=== PATIENT | female | born 1995 | race Caucasian/White ===

== ENCOUNTER 2020-11-26 21:52 | Emergency (ER) | payer MEDICARE ==
[2020-11-26] MEDS ORDERED: ANTIVERT 25 MG PO ONE (22:25)
[2020-11-26] MEDS ORDERED: ANTIVERT 25 MG ONE (22:27)
[2020-11-26 22:34] LABS: Absolute Neutrophil Ct (ANC) 4.92 (1.4-6.9); BASOPHIL % 0.3 % (0.0-0.4); Basophil (Absolute #) 0.03 (0-0.4); Eosinophil % 1.3 % (0.00-5.0); Eosinophil (Absolute #) 0.15 (0-0.5); Hematocrit 42.6 % (35-47); Hemoglobin 13.9 gm/dl (12.0-16.0); Lymphocyte (Absolute #) 5.73 (1.0-4.6); Lymphocytes % 48.7 % (24.0-44.0); Mean Cell Volume 93.6 fl (78-100); Mean Corpuscular Hemoglobin 30.5 pg (26-32); Mean Corpuscular Hgb Concent. 32.6 g/dl (32-36); Mean Platelet Volume 11.4 fl (7.5-11.0); Monocyte (Absolute #) 0.93 (0.0-1.3); Monocytes % 7.9 % (0.0-12.0); Neutrophil % 41.8 % (36.0-66.0); Platelet Count 269 K/mm3 (150-450); Red Blood Count 4.55 M/mm3 (4.1-5.4); Red Cell Distribution Width 13.1 % (11.5-14.0); White Blood Count 11.8 K/mm3 (4.0-10.5)
[2020-11-26 22:42] LABS: Appearance CLEAR (CLEAR); Bilirubin NEGATIVE (NEGATIVE); Blood NEGATIVE Ery/ul (0-5); Glucose NEGATIVE (NEGATIVE); Ketones NEGATIVE (NEGATIVE); Leukocyte Esterase NEGATIVE (NEGATIVE); Mucus SLIGHT /HPF (NEGATIVE); Nitrite NEGATIVE (NEGATIVE); Protein,Urine Dip NEGATIVE (Negative); RBC 0-2 /HPF (0-2); Specific Gravity 1.023 (1.005-1.025); Urobilinogen NEGATIVE mg/dL (0-1)
[2020-11-26 22:45] LABS: ALBUMIN 5.1 g/dL (3.5-5.0); ALKALINE PHOSPHATASE 55 U/L (38-126); ANION GAP 16.9 MEQ/L (5-15); BLOOD UREA NITROGEN 15 mg/dL (7-17); CHLORIDE 103 mmol/L (98-107); Calcium 9.8 mg/dL (8.4-10.2); Carbon Dioxide 25 mmol/L (22-30); EST GLOMERULAR FILTRATION RATE > 60.0 ML/MIN; Glucose 92 mg/dL (74-106); MAGNESIUM 1.9 mg/dL (1.6-2.3); Potassium 3.5 mmol/L (3.5-5.1); SGOT/AST 24 U/L (14-36); SGPT/ALT 13 U/L (0-35); SODIUM 141 mmol/L (137-145); Total Protein 8.6 g/dL (6.3-8.2)
--- NOTE | 2020-11-26 22:51 | ERPHSYRPT ---
- History of Present Illness Time Seen by Provider: 11/26/20 22:00 Source: patient Exam Limitations: no limitations Patient Subjective Stated Complaint: pt c/o dizziness, worse when going from sitting to standing position Triage Nursing Assessment: pt c/o dizziness which started last night and had a few episodes of it today but it got alot worse this evening, especially when laying in bed. Pt states, "my head just feels fuzzy/spinning". Physician History: This is a 25-year-old white female who denies any head injury any presents with dizziness that began as short-lived lightheadedness yesterday. The lightheadedn ess resolved then today she had a few episodes of dizziness. It is worse when she goes from sitting to standing. Although this evening, she laid down and the dizziness was worse. She is never had anything like this before. He is not on any new medications. She has had no new exposures to any chemicals that she is aware of. She denies chest pain and she denies shortness of breath. She denies abdominal pain. She has no earaches. There are no new stressors in her life. She has no ringing in her ears Timing/Duration: yesterday Severity: moderate Character of Deficits: none Deficits: no difficulties Baseline/Normal Cognition: alert oriented x 3 Current Cognition: alert oriented x 3 Baseline Gait: walks w/o assistance Associated Symptoms: denies symptoms Allergies/Adverse Reactions: No Known Drug Allergies Allergy (Unverified 11/26/20 22:00) Hx Tetanus, Diphtheria Vaccination/Date Given: Yes Hx Influenza Vaccination/Date Given: Yes Hx Pneumococcal Vaccination/Date Given: No Immunizations Up to Date: Yes Travel Risk - International Travel Have you traveled outside of the country in past 3 weeks: No - Coronavirus Screening Are you exhibiting any of the following symptoms?: No Close contact with a COVID-19 positive Pt in past 14-21 Days: No - Vaccine Status Have you recieved a Covid-19 vaccination: No - Review of Systems Constitutional: No Symptoms Eyes: No Symptoms Ears, Nose, & Throat: No Symptoms Respiratory: No Symptoms Cardiac: No Symptoms Abdominal/Gastrointestinal: No Symptoms Genitourinary Symptoms: No Symptoms Musculoskeletal: No Symptoms Skin: No Symptoms Neurological: Dizziness, No Headache Psychological: No Symptoms Endocrine: No Symptoms Hematologic/Lymphatic: No Symptoms Immunological/Allergic: No Symptoms All Other Systems: Reviewed and Negative - Past Medical History Pertinent Past Medical History: No Neurological History: No Pertinent History ENT History: No Pertinent History Cardiac History: No Pertinent History Respiratory History: No Pertinent History Endocrine Medical History: No Pertinent History Musculoskeletal History: No Pertinent History GI Medical History: No Pertinent History History: No Pertinent History Psycho-Social History: No Pertinent History Female Reproductive Disorders: No Pertinent History - Past Surgical History Past Surgical History: No Neuro Surgical History: No Pertinent History Cardiac: No Pertinent History Respiratory: No Pertinent History Gastrointestinal: No Pertinent History Genitourinary: No Pertinent History Musculoskeletal: No Pertinent History Female Surgical History: No Pertinent History - Social History Smoking Status: Never smoker Exposure to second hand smoke: No Drug Use: none Patient Lives Alone: No - Female History Hx Last Menstrual Period: 2 weeks ago Hx Now: (unknown) - Nursing Vital Signs Nursing Vital Signs: Initial Vital Signs Temperature 98.3 F 11/26/20 21:53 Pulse Rate 90 11/26/20 21:53 Respiratory Rate 18 11/26/20 21:53 Blood Pressure 159/102 11/26/20 21:53 O2 Sat by Pulse Oximetry 100 11/26/20 21:53 Pain Scale Pain Intensity 0 - Sumner Coma Scale Best Eye Response (Sumner): (4) open spontaneously Best Verbal Response (Sumner): (5) oriented Best Motor Response (Sumner): (6) obeys commands Malcolm Total: 15 - Physical Exam General Appearance: no apparent distress, alert, anxiety Eye Exam: bilateral eye: normal inspection, PERRL, EOMI Ears, Nose, Throat Exam: normal ENT inspection, TMs normal, pharynx normal, moist mucous membranes Neck Exam: normal inspection, non-tender, supple, full range of motion Respiratory: normal breath sounds, lungs clear, airway intact, No chest tenderness, No respiratory distress Cardiovascular: regular rate/rhythm, normal heart sounds, normal peripheral pulses Gastrointestinal: soft, normal bowel sounds, No tenderness Pelvic Exam: not done Rectal Exam: not done Back Exam: normal inspection, normal range of motion, No CVA tenderness, No vertebral tenderness Extremity Exam: normal inspection, normal range of motion, pelvis stable Mental Status: alert, oriented x 3, cooperative addiction specialist Exam: normal hearing, normal speech, PERRL, tongue midline Coordination/Gait: normal finger to nose, normal gait, normal cerebellar function Motor/Sensory: no motor deficit, no sensory deficit, no pronator drift Skin Exam: normal color, warm, dry SpO2 Interpretation: normal SpO2: 100 O2 Delivery: Room Air - Course Nursing assessment & vital signs reviewed: Yes EKG Interpreted by Me: RATE (85), Sinus Rhythm, NORMAL AXIS, NORMAL INTERVALS, NORMAL QRS, NORMAL ST-T, Other (No acute ischemic changes. No comparison EKG available.) Ordered Tests: Active Orders 24 hr Category Date Time Status EKG-ER Only STAT Care 11/26/20 22:26 Active IV Insertion STAT Care 11/26/20 22:25 Active Orthostatic Vital Signs STAT Care 11/26/20 22:13 Active HEAD WITHOUT CONTRAST [CT] Stat Exams 11/26/20 22:25 Taken CBC W DIFF Stat Lab 11/26/20 22:28 Completed CMP Stat Lab 11/26/20 22:28 Completed HCG,QUALITATIVE URINE Stat Lab 11/26/20 22:26 Completed MAGNESIUM Stat Lab 11/26/20 22:28 Completed TROPONIN Q3H Lab 11/26/20 22:28 Completed TROPONIN Q3H Lab 11/27/20 01:30 Ordered TROPONIN Q3H Lab 11/27/20 04:30 Ordered TROPONIN Q3H Lab 11/27/20 07:30 Ordered TROPONIN Q3H Lab 11/27/20 10:30 Ordered UA W/RFX UR CULTURE Stat Lab 11/26/20 22:26 Completed Urine Triage Profile Stat Lab 11/26/20 22:26 Completed Medication Summary Discontinued Medications Generic Name Dose Route Start Last Admin Trade Name Freq PRN Reason Stop Dose Admin Meclizine HCl 25 mg 11/26/20 22:25 11/26/20 22:28 Antivert 25 Mg PO 11/26/20 22:26 25 mg STAT ONE Administration Meclizine HCl Confirm 11/26/20 22:27 Antivert 25 Mg Administered 11/26/20 22:28 Dose 25 mg .ROUTE .STK-MED ONE Lab/Rad Data: Laboratory Result Diagrams 11/26/20 22:28 11/26/20 22:28 Laboratory Results 11/26/20 11/26/20 11/26/20 Range/Units 22:28 22:28 22:28 WBC 11.8 H (4.0-10.5) K/mm3 RBC 4.55 (4.1-5.4) M/mm3 Hgb 13.9 (12.0-16.0) gm/dl Hct 42.6 (35-47) % MCV 93.6 (78-100) fl MCH 30.5 (26-32) pg MCHC 32.6 (32-36) g/dl RDW 13.1 (11.5-14.0) % Plt Count 269 (150-450) K/mm3 MPV 11.4 H (7.5-11.0) fl Gran % 41.8 (36.0-66.0) % Eos # (Auto) 0.15 (0-0.5) Absolute Lymphs (auto) 5.73 H (1.0-4.6) Absolute Monos (auto) 0.93 (0.0-1.3) Lymphocytes % 48.7 H (24.0-44.0) % Monocytes % 7.9 (0.0-12.0) % Eosinophils % 1.3 (0.00-5.0) % Basophils % 0.3 (0.0-0.4) % Absolute Granulocytes 4.92 (1.4-6.9) Basophils # 0.03 (0-0.4) Sodium 141 (137-145) mmol/L Potassium 3.5 (3.5-5.1) mmol/L Chloride 103 (98-107) mmol/L Carbon Dioxide 25 (22-30) mmol/L Anion Gap 16.9 H (5-15) MEQ/L BUN 15 (7-17) mg/dL Creatinine 0.80 (0.52-1.04) mg/dL Estimated GFR > 60.0 ML/MIN Glucose 92 (74-106) mg/dL Calcium 9.8 (8.4-10.2) mg/dL Magnesium 1.9 (1.6-2.3) mg/dL Total Bilirubin 0.30 (0.2-1.3) mg/dL AST 24 (14-36) U/L ALT 13 (0-35) U/L Alkaline Phosphatase 55 (38-126) U/L Troponin I < 0.012 (0.000-0.034) ng/mL Serum Total Protein 8.6 H (6.3-8.2) g/dL Albumin 5.1 H (3.5-5.0) g/dL Urine Color (YELLOW) Urine Appearance (CLEAR) Urine pH (5-6) Ur Specific [place] (1.005-1.025) Urine Protein (Negative) Urine Ketones (NEGATIVE) Urine Blood (0-5) Leonardo/ul Urine Nitrite (NEGATIVE) Urine Bilirubin (NEGATIVE) Urine Urobilinogen (0-1) mg/dL Ur Leukocyte Esterase (NEGATIVE) Urine WBC (Auto) (0-5) /HPF Urine RBC (Auto) (0-2) /HPF U Epithel Cells (Auto) (FEW) /HPF Urine Mucus (Auto) (NEGATIVE) /HPF Urine Culture Reflexed (NO) Urine Glucose (NEGATIVE) mg/dL Urine HCG, Qual (Negative) Urine Opiates Level (NEGATIVE) Ur Methadone (NEGATIVE) Urine Barbiturates (NEGATIVE) Ur Phencyclidine (PCP) (NEGATIVE) Urine Amphetamine (NEGATIVE) U Benzodiazepine Level (NEGATIVE) Urine Cocaine (NEGATIVE) Urine Marijuana (THC) (NEGATIVE) 11/26/20 11/26/20 11/26/20 Range/Units 22:26 22:26 22:26 WBC (4.0-10.5) K/mm3 RBC (4.1-5.4) M/mm3 Hgb (12.0-16.0) gm/dl Hct (35-47) % MCV (78-100) fl MCH (26-32) pg MCHC (32-36) g/dl RDW (11.5-14.0) % Plt Count (150-450) K/mm3 MPV (7.5-11.0) fl Gran % (36.0-66.0) % Eos # (Auto) (0-0.5) Absolute Lymphs (auto) (1.0-4.6) Absolute Monos (auto) (0.0-1.3) Lymphocytes % (24.0-44.0) % Monocytes % (0.0-12.0) % Eosinophils % (0.00-5.0) % Basophils % (0.0-0.4) % Absolute Granulocytes (1.4-6.9) Basophils # (0-0.4) Sodium (137-145) mmol/L Potassium (3.5-5.1) mmol/L Chloride (98-107) mmol/L Carbon Dioxide (22-30) mmol/L Anion Gap (5-15) MEQ/L BUN (7-17) mg/dL Creatinine (0.52-1.04) mg/dL Estimated GFR ML/MIN Glucose (74-106) mg/dL Calcium (8.4-10.2) mg/dL Magnesium (1.6-2.3) mg/dL Total Bilirubin (0.2-1.3) mg/dL AST (14-36) U/L ALT (0-35) U/L Alkaline Phosphatase (38-126) U/L Troponin I (0.000-0.034) ng/mL Serum Total Protein (6.3-8.2) g/dL Albumin (3.5-5.0) g/dL Urine Color YELLOW (YELLOW) Urine Appearance CLEAR (CLEAR) Urine pH 6.0 (5-6) Ur Specific [place] 1.023 (1.005-1.025) Urine Protein NEGATIVE (Negative) Urine Ketones NEGATIVE (NEGATIVE) Urine Blood NEGATIVE (0-5) Leonardo/ul Urine Nitrite NEGATIVE (NEGATIVE) Urine Bilirubin NEGATIVE (NEGATIVE) Urine Urobilinogen NEGATIVE (0-1) mg/dL Ur Leukocyte Esterase NEGATIVE (NEGATIVE) Urine WBC (Auto) NONE (0-5) /HPF Urine RBC (Auto) 0-2 (0-2) /HPF U Epithel Cells (Auto) NONE (FEW) /HPF Urine Mucus (Auto) SLIGHT (NEGATIVE) /HPF Urine Culture Reflexed NO (NO) Urine Glucose NEGATIVE (NEGATIVE) mg/dL Urine HCG, Qual NEGATIVE (Negative) Urine Opiates Level NEGATIVE (NEGATIVE) Ur Methadone NEGATIVE (NEGATIVE) Urine Barbiturates NEGATIVE (NEGATIVE) Ur Phencyclidine (PCP) NEGATIVE (NEGATIVE) Urine Amphetamine NEGATIVE (NEGATIVE) U Benzodiazepine Level NEGATIVE (NEGATIVE) Urine Cocaine NEGATIVE (NEGATIVE) Urine Marijuana (THC) NEGATIVE (NEGATIVE) - Progress Progress: improved, re-examined Progress Note: 11/26/20 23:35 CAT scan of the head without contrast shows no acute intracranial abnormality. Counseled pt/family regarding: lab results, diagnosis, need for follow-up, rad results - Departure Departure Disposition: Home Clinical Impression: Dizziness Condition: Stable Critical Care Time: No Referrals: DOCTOR,NO FAMILY [Primary Care Provider] - Additional Instructions: Drink plenty of fluids. Take your medication as prescribed. Follow-up with your primary care physician tomorrow for further management. Prescriptions: Meclizine HCl 25 mg [Antivert 25 mg] 25 mg PO Q8H PRN #10 tablet PRN Reason: Dizziness
[2020-11-26 23:17] LABS: Amphetamine,Urine NEGATIVE (NEGATIVE); Barbiturate,Urine NEGATIVE (NEGATIVE); Benzodiazepine,Urine NEGATIVE (NEGATIVE); Cocaine,Urine NEGATIVE (NEGATIVE); Methadone,Urine NEGATIVE (NEGATIVE); Opiate,Urine NEGATIVE (NEGATIVE); PCP,Urine NEGATIVE (NEGATIVE); THC,Urine NEGATIVE (NEGATIVE)
[2020-11-26 23:40] VITALS: BP 123/75; PULSE 85; O2SAT 99
[2020-11-27 01:55] LABS: Slide Review 1 YES
--- NOTE | 2020-11-27 09:04 | XRAY ---
Indication: Dizziness and headache. Multiple contiguous axial images obtained through the head without contrast. Comparison: None Normal appearing brain parenchyma, ventricles, and bony calvarium. Visualized paranasal sinuses and mastoid air cells are clear. Impression: Normal CT head without contrast exam. Comment: Preliminary interpretation was made by [facility]. No critical discrepancy.
== END 2020-11-26 23:49 | disposition home or self-care (01) ==
LOC: ED 21:52
DX: R42 Dizziness and giddiness (principal)
CPT/HCPCS: 36000; 36415; 70450; 80053; 80307; 81001; 83735; 84484; 84703; 85025; 93005; 99284; A9270-GY

== ENCOUNTER 2022-04-23 21:18 | Observation (INO) | payer OTHER ==
[2022-04-23 22:39] LABS: Hematocrit 29.3 % (35-47); Hemoglobin 9.5 g/dL (12.0-16.0); Mean Cell Volume 95.8 fL (78-100); Mean Corpuscular Hgb Concent. 32.4 g/dL (32-36); Mean Platelet Volume 10.3 fL (7.5-11.0); Platelet Count 247 x10^3/uL (150-450); Red Blood Count 3.06 x10^6/uL (4.1-5.4); Red Cell Distribution Width 13.1 % (11.5-14.0); White Blood Count 18.2 x10^3/uL (4.0-10.5)
[2022-04-23 22:45] LABS: Appearance SLIGHTLY CLOUDY (CLEAR); Bilirubin NEGATIVE (NEGATIVE); Dipstick done @ ? MAIN LAB; Glucose NEGATIVE (NEGATIVE); Ketones NEGATIVE (NEGATIVE); Nitrite NEGATIVE (NEGATIVE); Protein,Urine Dip NEGATIVE (Negative); RBC NEGATIVE Ery/ul (0-5); Specific Gravity 1.015 (1.005-1.025); Urobilinogen 0.2 mg/dL (0-1)
[2022-04-23 22:48] LABS: Epithelial Cells RARE /HPF (FEW); Mucus SLIGHT /HPF (NEGATIVE)
[2022-04-23 23:02] LABS: Urine Cultured Indicated? NO
[2022-04-23 23:16] LABS: BAND 2 % (0.0-2.0); Eosinophil 3 % (0.00-3.0); Lymphocytes 15 % (24-44); Monocyte 4 % (0.0-12.0); Total Cells Counted 100
[2022-04-23 23:17] LABS: Platelet Estimate NORMAL (NORMAL)
[2022-04-23 23:41] LABS: ABO TYPING O; Antibody Screen NEGATIVE (NEGATIVE); RH TYPING POSITIVE
--- NOTE | 2022-04-24 07:57 | PCM.HP ---
History of Present Illness - Chief Complaint History of Present Illness: is a 26 year old female. 26 yo iup 29 1/7 wks with hx of depression and anxiety currently arrived to labor delivery for evaluation of secondary to falling on her back after tripping over shoes that occurred last night around 7 pm. denies vaginal bleeding or cramping. currently sees provider in [place] and has an appt next thursday. Medications & Allergies Home Medications: Home Medication List Meclizine HCl 25 mg [Antivert 25 mg] 25 mg PO Q8H PRN #10 tablet 11/26/20 [Rx Confirmed 04/23/22] Allergies/Adverse Reactions: Allergies Allergy/AdvReac Type Severity Reaction Status Date / Time No Known Drug Allergies Allergy Unverified 11/26/20 22:00 - Past Medical History Past Medical History: No Neurological History: No Pertinent History ENT History: No Pertinent History Cardiac History: No Pertinent History Respiratory History: No Pertinent History Endocrine Medical History: No Pertinent History Musculoskelatal History: No Pertinent History GI Medical History: No Pertinent History History: No Pertinent History Pyscho-Social History: No Pertinent History Reproductive Disorders: No Pertinent History - Female History Are you now?: Yes Expected Date of Delivery: 07/12/21 - Past Surgical History Past Surgical History: No Neuro Surgical History: No Pertinent History Cardiac History: No Pertinent History Respiratory Surgery: No Pertinent History GI Surgical History: No Pertinent History Genitourinary Surgical Hx: No Pertinent History Musculskeletal Surgical Hx: No Pertinent History Female Surgical History: No Pertinent History - Social History Smoking Status: Never smoker Exposure to second hand smoke: No Alcohol: None Drug Use: none - Physical Exam Vital Signs: Vital Signs - 24 hr Temp Pulse Resp BP BP Pulse Ox 04/24/22 03:00 98 F 87 18 128/67 128/67 100 04/24/22 01:00 77 20 97 04/24/22 00:00 84 20 97 04/23/22 23:16 88 20 108/59 96 04/23/22 23:00 88 20 108/59 96 04/23/22 22:14 98.6 F 94 H 16 125/64 98 04/23/22 22:00 97.8 F 84 18 123/65 100 04/23/22 21:20 98.6 F 94 H 16 125/64 98 04/23/22 21:18 98.6 F 94 H 16 125/64 125/64 98 General Appearance: no apparent distress Respiratory Exam: normal breath sounds Gastrointestinal/Abdomen Exam: soft Pelvic Exam: deferred Extremity Exam: normal inspection Results - Labs Lab/Micro Results: Lab Results-Last 24 Hours 04/23/22 04/23/22 04/23/22 Range/Units 22:36 22:36 22:36 WBC 18.2 H (4.0-10.5) x10^3/uL RBC 3.06 L (4.1-5.4) x10^6/uL Hgb 9.5 L (12.0-16.0) g/dL Hct 29.3 L (35-47) % MCV 95.8 (78-100) fL MCH 31.0 (26-32) pg MCHC 32.4 (32-36) g/dL RDW 13.1 (11.5-14.0) % Plt Count 247 (150-450) x10^3/uL MPV 10.3 (7.5-11.0) fL Segmented Neutrophils 76 H (36.0-66.0) % Band Neutrophils 2 (0.0-2.0) % Lymphocytes (Manual) 15 L (24-44) % Monocytes (Manual) 4 (0.0-12.0) % Eosinophils (Manual) 3 (0.00-3.0) % Platelet Estimate NORMAL (NORMAL) RBC Morphology NORMAL Urinalys Dipstick Clnc MAIN LAB Urine Color YELLOW (YELLOW) Urine Appearance SLIGHTLY CLOUDY A (CLEAR) Urine pH 6.0 (5-6) Ur Specific [place] 1.015 (1.005-1.025) POC Urine Protein Conf NEGATIVE (Negative) Urine Ketones NEGATIVE (NEGATIVE) Urine Nitrite NEGATIVE (NEGATIVE) Urine Bilirubin NEGATIVE (NEGATIVE) Urine Urobilinogen 0.2 (0-1) mg/dL Urine Leukocytes NEGATIVE (NEGATIVE) Urine WBC (Auto) NONE (0-5) /HPF Urine RBC (Auto) NONE (0-2) /HPF U Epithel Cells (Auto) RARE (FEW) /HPF Urine Bacteria (Auto) NONE (NEGATIVE) /HPF Urine RBC NEGATIVE (0-5) Leonardo/ul Urine Mucus (Auto) SLIGHT A (NEGATIVE) /HPF Ur Culture Indicated? NO Urine Glucose NEGATIVE (NEGATIVE) mg/dL ABO Group O Rh Factor POSITIVE Antibody Screen NEGATIVE (NEGATIVE) - Radiology Impressions Radiology Exams & Impressions: Radiology Procedures Category Date Time Status OB FOLLOW UP PER [facility]ETUS [US] Routine Exams 04/24/22 00:00 Ordered - Other Procedures and Tests blood type o positive hgb; 9.5 ob sonogram done and was normal with stormy at 13 monitoring; reactive category 1 tracing Assessment/Plan (1) Status post fall Current Visit: Yes Status: Acute Code(s): Z91.81 - HISTORY OF FALLING (2) Current Visit: Yes Status: Acute Code(s): Z34.90 - ENCNTR FOR SUPRVSN OF NORMAL , UNSP, UNSP TRIMESTER
--- NOTE | 2022-04-24 08:02 | PCM.DS ---
Discharge Summary Date of Admission: 04/23/22 21:18 Admitting Physician: KRISTI FERNANDEZ DO Primary Care Provider: GAYLA JONES Allergies Allergies No Known Drug Allergies Allergy (Unverified 11/26/20 22:00) Hospital Summary - Hospital Course Hospital Course: pt admitted last night who was at 29 wks and fell on her back after tripping over her shoes. denies vaginal bleeding or cramping. sonogram done and was normal with stormy at 13, tracing reactive category 1 and hgb at 9.5. all questions answered to her satisfaction and was advised to fu with her provider as scheduled next week and to contact his office for any noted decreased movement. - Vitals & Intake/Output Vital Signs: Vital Signs Temperature 98 F 04/24/22 03:00 Pulse Rate 87 04/24/22 03:00 Respiratory Rate 18 04/24/22 03:00 Blood Pressure 128/67 04/24/22 03:00 O2 Sat by Pulse Oximetry 100 04/24/22 03:00 Intake & Output: Intake & Output 04/21/22 04/22/22 04/23/22 04/24/22 11:59 11:59 11:59 11:59 Intake Total 2500 Balance 2500 Weight 180 kg - Lab Result Diagrams: 04/23/22 22:36 Lab Results-Last 24 Hrs: Lab Results-Last 24 Hours 04/23/22 04/23/22 04/23/22 Range/Units 22:36 22:36 22:36 WBC 18.2 H (4.0-10.5) x10^3/uL RBC 3.06 L (4.1-5.4) x10^6/uL Hgb 9.5 L (12.0-16.0) g/dL Hct 29.3 L (35-47) % MCV 95.8 (78-100) fL MCH 31.0 (26-32) pg MCHC 32.4 (32-36) g/dL RDW 13.1 (11.5-14.0) % Plt Count 247 (150-450) x10^3/uL MPV 10.3 (7.5-11.0) fL Segmented Neutrophils 76 H (36.0-66.0) % Band Neutrophils 2 (0.0-2.0) % Lymphocytes (Manual) 15 L (24-44) % Monocytes (Manual) 4 (0.0-12.0) % Eosinophils (Manual) 3 (0.00-3.0) % Platelet Estimate NORMAL (NORMAL) RBC Morphology NORMAL Urinalys Dipstick Clnc MAIN LAB Urine Color YELLOW (YELLOW) Urine Appearance SLIGHTLY CLOUDY A (CLEAR) Urine pH 6.0 (5-6) Ur Specific [place] 1.015 (1.005-1.025) POC Urine Protein Conf NEGATIVE (Negative) Urine Ketones NEGATIVE (NEGATIVE) Urine Nitrite NEGATIVE (NEGATIVE) Urine Bilirubin NEGATIVE (NEGATIVE) Urine Urobilinogen 0.2 (0-1) mg/dL Urine Leukocytes NEGATIVE (NEGATIVE) Urine WBC (Auto) NONE (0-5) /HPF Urine RBC (Auto) NONE (0-2) /HPF U Epithel Cells (Auto) RARE (FEW) /HPF Urine Bacteria (Auto) NONE (NEGATIVE) /HPF Urine RBC NEGATIVE (0-5) Leonardo/ul Urine Mucus (Auto) SLIGHT A (NEGATIVE) /HPF Ur Culture Indicated? NO Urine Glucose NEGATIVE (NEGATIVE) mg/dL ABO Group O Rh Factor POSITIVE Antibody Screen NEGATIVE (NEGATIVE) - Radiology Exams Ordered Rad Exams-Entire Visit: Radiology Procedures Category Date Time Status OB FOLLOW UP PER [facility]ETUS [US] Routine Exams 04/24/22 00:00 Ordered Final Diagnosis/Problem List - Final Discharge Diagnosis/Problem (1) Status post fall Current Visit: Yes Status: Acute Code(s): Z91.81 - HISTORY OF FALLING (2) Current Visit: Yes Status: Acute Code(s): Z34.90 - ENCNTR FOR SUPRVSN OF N ORMAL , UNSP, UNSP TRIMESTER - Discharge Disposition: Home, Self-Care Condition: Stable Prescriptions: No Action Meclizine HCl 25 mg [Antivert 25 mg] 25 mg PO Q8H PRN #10 tablet PRN Reason: Dizziness Additional Instructions: Follow up with your OB provider at your scheduled appointment. Contact provider sooner if movement is decreased or you experience bleeding. Follow up with: PRADEEP KENNY DO [NON-STAFF PHY W/O PRIVILEGES] - KRISTI FERNANDEZ DO [ACTIVE STAFF] - (should fu with her primary provder for continued care) Forms: OB Outpatient Discharge Inst.
[2022-04-24 08:13] VITALS: BP 96/53; PULSE 76; O2SAT 98
--- NOTE | 2022-04-24 09:10 | XRAY ---
Indication: Status post fall. Two-dimensional OB ultrasound performed. Comparison: None A single viable intrauterine currently in cephalic presentation. Normal four-chamber heart with heart rate 153 BPM. Visualized stomach and bladder are unremarkable. Posterior placenta without abnormal retroplacental fluid. Cervical length is 3.7 cm. BPD measures 7.49 cm corresponding to 30 weeks 0 days. HC measures 26.85 cm corresponding to 29 weeks 2 days. AC measures 25.84 cm corresponding to 30 weeks 0 days. FL measures 5.31 cm corresponding to 28 weeks 1 day. Estimated weight 3 lbs. 1 oz., +/-7 ounce. Approximately 61 percentile. JAMES is 12.7 cm. Impression: Single viable intrauterine with mean gestational age 29 weeks 3 days. Expected date confinement is July 07, 2022. No acute findings.
== END 2022-04-24 08:06 | disposition home or self-care (01) ==
LOC: OB 21:18
PROVIDERS: ADMIT Obstetrics & Gynecology; ATTEND Obstetrics & Gynecology
DX: Z34.83 Encounter for supervision of other normal pregnancy, third trimester (principal); Z3A.29 29 weeks gestation of pregnancy; W18.30XA Fall on same level, unspecified, initial encounter; Z20.828 Contact with and (suspected) exposure to other viral communicable diseases
CPT/HCPCS: 36415; 76816; 81015; 85025; 86850; 86900; 86901; G0378; 99213